=== PATIENT | female | born 1970 | race African-American/Black ===

== ENCOUNTER 2016-04-27 10:03 | Emergency (ER) | payer MEDICAID ==
--- NOTE | ~2016-04-27 | CT71 ---
[facility] A Service of [facility] RADIOLOGY TEXT RESULTS PATIENT: INES MCKENZIE LOCATION: [place] : 72 UNIT #: [id number] AGE: [address]: Casper Coello SEX: F ORDER DR: [id number] [place], [place] [address] [id number] MR#: [id number] Acc #: [id number] NAME: INES MCKENZIE : 1970 SEX: F STUDY DATE/TIME: 04/27/2016 10:21 UNIT: [place] ROOM: STUDY DESCRIPTION: CT Head Wo Contrast Attending Physician: Casper Coello Ordering Physician: Darinel Rodríguez M.D. Primary Care Physician: Cj Martinez M.D. MEDICAL IMAGING REPORT This report is preliminary unless electronic signature is present EXAM Head CT without contrast HISTORY Headache, dizziness, blurred vision, onset this morning. TECHNIQUE Axial images were obtained without contrast. This CT examination was performed with one or more of the following radiation dose reduction techniques: automatic exposure control, adjustment of mA and/or kV according to patient size, and iterative reconstruction. FINDINGS Axial noncontrast images were obtained from the skull base to the vertex. Ventricular size and configuration are normal. There is no evidence of acute infarct or hemorrhage. There are no extra-axial fluid collections. No mass lesion or mass effect is seen. There are no skull fractures. IMPRESSION Normal noncontrast head CT. Dictated by... Tien Phillips M.D. THIS IS AN ELECTRONICALLY VERIFIED REPORT Tien Phillips M.D. at 04/28/2016 10:47 AM CHARO/cherelle TD: 04/27/2016 15:17 JOB #: [id number] MEDICAL IMAGING REPORT [facility] A Service of [facility] RADIOLOGY TEXT RESULTS PATIENT: INES MCKENZIE LOCATION: [place] : 72 UNIT #: [id number] AGE: [address]: Casper Coello SEX: F ORDER DR: Page 1 of 1 COPY
--- NOTE | ~2016-04-27 | EKG ---
PATIENT: INES MCKENZIE UNIT #: [id number] Ventricular Rate: 74 BPM Atrial Rate: 74 BPM P-R Interval: 130 ms QRS Duration: 88 ms Q-T Interval: 400 ms QTC Calculation(Bezet): 444 ms P Hazard: 33 degrees Calculated R Hazard: 146 degrees Calculated T Hazard: 134 degrees Diagnosis Line: Normal sinus rhythm Diagnosis Line: Suspect arm lead reversal, interpretation Diagnosis Line: assumes no reversal Diagnosis Line: normal chest leads. recommend repeat ECG. Diagnosis Line: Diagnosis Line: Confirmed by MOHIT CARLSON MD ([id number]) on 04/28/2016 Diagnosis Line: 9:19:54 AM INTERPRETING MD: ALDO FERNÁNDEZ
[2016-04-27 11:15] LABS: BASOPHIL% 0.6 % (0-2.5); EOSINOPHIL# 0.4 X10e3 (0-0.7); EOSINOPHIL% 5.5 % (0.0-7.0); HEMATOCRIT 34.7 % (35.0-45.0); HEMOGLOBIN 11.1 gm/dL (12.0-16.0); LYMPHOCYTE# 1.9 X10e3 (1.0-3.5); MEAN CELL VOLUME 96.5 FL (83-96); MEAN CORPUSCULAR HEMOGLOBIN 30.8 PG (28-34); MEAN CORPUSCULAR HGB CONC 31.9 g/dL (30-36); MEAN PLATELET VOLUME 8.3 FL (6.5-11.5); MONOCYTE# 0.8 X10e3 (0-1.0); MONOCYTE% 10.7 % (3.0-12.0); NEUTROPHIL# 4.4 X10e3 (1.5-7.1); NEUTROPHIL% 58.2 % (40-75); PLATELET COUNT 257 X10e3 (140-420); RED CELL DISTRIBUTION WIDTH 13.5 % (11.0-15.5); WHITE BLOOD COUNT 7.6 X10e3 (4.0-10.5)
[2016-04-27 11:20] LABS: DIFF IND NO
[2016-04-27 11:52] LABS: ALBUMIN SERUM 3.5 g/dL (3.5-5.0); ALKALINE PHOSPHATASE 62 U/L (32-92); ALT (SGPT) 18 U/L (10-40); AST (SGOT) 21 U/L (10-42); BILIRUBIN, DIRECT 0.1 mg/dL (0.0-0.2); BILIRUBIN,INDIRECT 0.6 mg/dL (0.0-0.9); BILIRUBIN,TOTAL 0.7 mg/dL (0.2-2.0); BLOOD UREA NITROGEN 12 mg/dL (9-23); CALCIUM SERUM 8.6 mg/dL (8.4-10.2); CARBON DIOXIDE 25 mmol/L (22-31); CHLORIDE 108 mmol/L (100-111); CREATININE SERUM 0.5 mg/dL (0.6-1.4); GLOM FILT RATE Estimated ABOVE60 mL/min (>60); GLUCOSE FASTING 81 mg/dL (70-110); POTASSIUM 3.9 mmol/L (3.5-5.1); PROTEIN TOTAL SERUM 6.9 g/dL (6.0-8.3); SODIUM 138 mmol/L (135-145)
== END 2016-04-27 14:20 | disposition home or self-care (01) ==
LOC: CED 10:03
PROVIDERS: Nurse Practitioner
DX: J01.10 Acute frontal sinusitis, unspecified (principal); E11.9 Type 2 diabetes mellitus without complications; I10 Essential (primary) hypertension; J45.909 Unspecified asthma, uncomplicated; F17.210 Nicotine dependence, cigarettes, uncomplicated; Z88.8 Allergy status to other drugs, medicaments and biological substances; Z79.899 Other long term (current) drug therapy
CPT/HCPCS: 36415; 70450; 80048; 80076; 82947; 85025; 93005; 96360; 96372; 99284; J1885